=== PATIENT | male | born 1965 | race Caucasian/White ===

== ENCOUNTER 2017-01-09 07:25 | Day surgery (SDC) | payer OTHER ==
[2017-01-09] MEDS ORDERED: ceFAZolin 2 GM/DEXTROSE 100 ML IV ONE (07:37)
[2017-01-09] MEDS ORDERED: PAPAVERINE HCL 60 MG/2 ML SDV ONE (07:39)
[2017-01-09] MEDS ORDERED: BUPIVACAINE 0.5% 30 ML SDV ONE (07:40)
[2017-01-09] MEDS ORDERED: PROTAMINE SULFATE 50 MG/5 ML VIAL IVP ONE (07:40)
[2017-01-09] MEDS ORDERED: THROMBIN (BOVINE) 20,000 UNIT SPRAY TP ONE (07:40)
[2017-01-09] MEDS ORDERED: THROMBIN (BOVINE) 5,000 UNIT VIAL TP ONE (07:40)
[2017-01-09] MEDS ORDERED: NS 1,000 ML IV ONE (07:47)
[2017-01-09] MEDS ORDERED: LIDOCAINE 1% 2 ML INJ ID PRN (07:47)
[2017-01-09 08:24] LABS: % IMMATURE GRANULYOCYTES 0.4 % (0.0-1.1); ABSOLUTE IMMATURE GRANULOCYTES 0.02 10^3/uL (0.00-0.10); ADD DIFF? NO; ADD MORPH? NO; ADD SCAN? NO; ATYPICAL LYMPHOCYTE FLAG 0 (0-99); FRAGMENT RBC FLAG 0 (0-99); HEMATOCRIT 39.2 % (40.0-51.0); HEMOGLOBIN 13.6 g/dL (13.7-17.5); LEFT SHIFT FLG 0 (0-99); LIPEMIA HEMOLYSIS FLAG 90 (0-99); MEAN CELL HEMOGLOBIN CONCENTR. 34.7 g/dL (32.4-36.7); MEAN CELL VOLUME 92.2 fL (81.5-99.8); PLATELET CLUMPS FLAG 0 (0-99); PLATELET COUNT 312 10^3/uL (150-400); RED BLOOD CELL COUNT 4.25 10^6/uL (4.40-6.38); RED CELL DISTRIBUTION WIDTH 13.1 % (11.5-15.2)
[2017-01-09] MEDS ORDERED: MIDAZOLAM 2 MG/2 ML VIAL IVP ONE (09:29)
[2017-01-09 09:44] LABS: ANION GAP 12 mEq/L (8-16); CALCIUM 9.2 mg/dL (8.5-10.4); CARBON DIOXIDE 19 mEq/l (22-31); CHLORIDE 98 mEq/L (97-110); CREATININE 6.2 mg/dL (0.7-1.3); GLOMERULAR FILTRATION RATE 10; GLUCOSE 225 mg/dL (70-100); POTASSIUM 4.8 mEq/L (3.5-5.2); SODIUM 129 mEq/L (134-144)
--- NOTE | 2017-01-09 10:10 | PDHPUP ---
History & Physical Update H&P update statement: This history and physical update is based on an assessment of the patient which was completed after admission or registration (within 24 hours), but prior to the surgery/procedure. H&P update: H&P reviewed & patient examined, no change in patient's condition since H&P completed
[2017-01-09] MEDS ORDERED: fentaNYL 100 MCG/2 ML INJ ONE ×2 (10:17)
[2017-01-09] MEDS ORDERED: CISATRACURIUM BESYLATE 20 MG/10 ML VIAL IV ONE (10:17)
[2017-01-09] MEDS ORDERED: PROPOFOL/EMULSION 500 MG/50 ML BOTTLE IV ONE (10:17)
[2017-01-09] MEDS ORDERED: DEXAMETHASONE 4 MG/ML VIAL ONE (10:17)
[2017-01-09] MEDS ORDERED: PHENYLEPHRINE HCL 100 MCG/ML SYR ONE (10:18)
[2017-01-09] MEDS ORDERED: LIDOCAINE 2% 5 ML SDV ONE (10:18)
[2017-01-09] MEDS ORDERED: GLYCOPYRROLATE 0.2 MG/1 ML VIAL ONE ×3 (10:18→11:28)
--- NOTE | 2017-01-09 11:03 | PDANEPAE ---
ANE History of Present Illness A V shunt Dialysis CRI Cr 6.2 ANE Past Medical History - Cardiovascular History Hx Hypertension: Yes Hx Arrhythmias: No Hx Chest Pain: No Hx Coronary Artery / Peripheral Vascular Disease: No Hx CHF / Valvular Disease: No Hx Palpitations: No Cardiovascular History Comment: HYPERLIPIDEMIA - Pulmonary History Hx COPD: No Hx Asthma/Reactive Airway Disease: No Hx Recent Upper Respiratory Infection: No Hx Oxygen in Use at Home: No Hx Sleep Apnea: Yes Sleep Apnea Screening Result - Last Documented: Positive - Neurologic History Hx Cerebrovascular Accident: No Hx Seizures: No Hx Dementia: No - Endocrine History Hx Diabetes: Yes Hypothyroid: No Hyperthyroid: No Obesity: no, moderate Endocrine History Comment: DM - Renal History Hx Renal Disorders: Yes Renal History Comment: CHRONIC KIDNEY DISEASE - STAGE 4 - Liver History Hx Hepatic Disorders: No - Neurological & Psychiatric Hx Hx Neurological and Psychiatric Disorders: No - Cancer History Hx Cancer: No - Congenital Disorder History Hx Congenital Disorders: No - GI History Hx Gastrointestinal Disorders: Yes Gastrointestinal History Comment: GERD - Other Health History Other Health History: NEG - Chronic Pain History Chronic Pain: No - Surgical History Prior Surgeries: APPENDECTOMY. SHOULDER TEJINDER SCOPES. TOE SURG. FX REPAIR. MULT EYE SURG ANE Review of Systems - Exercise capacity METS (RN): 4 METS - Systems Cardiac: Reports: edema Respiratory: Reports: no symptoms ANE Patient History - Allergies Allergies/Adverse Reactions: No Known Allergies Allergy (Verified 01/09/17 07:53) - Home Medications Home medications: home medication list seen and reviewed Home Medications: Insulin Glargine [Lantus Syringe] 100 units SC 10/06/12 [Last Taken 01/07/17 22: 00] Insulin Lispro [Humalog] 8 units SC 10/06/12 [Last Taken 01/08/17 20:00] Lisinopril [Zestril 2.5 mg (RX)] 2.5 mg PO DAILY 10/06/12 [Last Taken 01/08/17 04:30] Omeprazole [Prilosec 10 mg] 10/06/12 [Last Taken 01/08/17 22:00] Simvastatin [Zocor 5 mg] 5 mg PO 10/06/12 [Last Taken 01/07/17] Allopurinol 01/08/17 [Last Taken 01/08/17 04:30] Aspirin 01/08/17 [Last Taken 01/08/17 04:30] Calcitriol 01/08/17 [Last Taken 01/06/17] Labetalol HCl 01/08/17 [Last Taken 01/08/17 20:00] Metolazone 01/08/17 [Last Taken 01/08/17 04:30] - NPO status NPO Since - Liquids (Date): 01/08/17 NPO Since - Liquids (Time): 23:45 NPO Since - Solids (Date): 01/08/17 NPO Since - Solids (Time): 20:00 - Anes Hx Anes Hx: no prior problems - Smoking Hx Smoking Status: Never smoked - Alcohol Use Alcohol Use: Rarely - Family Anes Hx Family Anes Hx: none Family Hx Anesthesia Complications: NEG ANE Labs/Vital Signs - Labs Result Diagrams: 01/09/17 08:05 01/09/17 08:52 - Labs - BMP Sodium: Corrected for increased Glucose 130 - Vital Signs Blood Pressure: 126/80 Heart Rate: 84 Respiratory Rate: 16 O2 Sat (%): 95 Height: 180.34 cm Weight: 113.398 kg ANE Physical Exam - Airway Neck exam: FROM Mallampati Score: Class 2 Mouth exam: normal dental/mouth exam - Pulmonary Pulmonary: no respiratory distress, no rales or rhonchi - Cardiovascular Cardiovascular: regular rate and rhythym, no murmur, rub, or gallop - ASA Status ASA Status: III ANE Anesthesia Plan Anesthesia Plan: general endotracheal anesthesia (Normal saline IV fluids) Specialized Airway: video laryngoscope
[2017-01-09] MEDS ORDERED: NEOSTIGMINE METHYLSULFATE 5 MG/5 ML SYR ONE (11:28)
[2017-01-09] MEDS ORDERED: PROPOFOL 200 MG/20 ML VIAL ONE (11:30)
[2017-01-09] MEDS ORDERED: ONDANSETRON 4 MG/2 ML VIAL IVP PRN (11:34)
[2017-01-09] MEDS ORDERED: NALOXONE HCL 0.4 MG/ML INJ IVP PRN (11:34)
[2017-01-09] MEDS ORDERED: HYDROmorphONE/DILAUDID 1 MG/ML SYR IVP PRN (11:34)
[2017-01-09] MEDS ORDERED: HYDROCODONE/APAP 5/325 TAB PO PRN (11:34)
[2017-01-09] MEDS ORDERED: fentaNYL 100 MCG/2 ML INJ IVP PRN ×2 (11:34)
[2017-01-09] MEDS ORDERED: ONDANSETRON 4 MG/2 ML VIAL ONE (11:52)
--- NOTE | 2017-01-09 12:05 | POSTOPPROG ---
Post Op Note Date of Operation: 01/09/17 Surgeon: Maximiliano Guzman Attendant Arcade: Suyapa Sanchez Anesthesiologist: Rafael Anesthesia: GET(General Endotracheal) Pre-op Diagnosis: Renal failure Post-op Diagnosis: Same Indication: renal failure in need of dialysis, Cr 6 Procedure: Left brachial cephalic AV fistula Inf/Abcess present in the surg proc area at time of surgery?: No Depth: Deep Incisional (Fascial) EBL: Minimal Complications: None Specimen(s): None
[2017-01-09 12:23] VITALS: PULSE 89
[2017-01-09 12:48] VITALS: RESP 16; O2SAT 96
--- NOTE | 2017-01-09 13:11 | POSTANESTH ---
Post Anesthetic Evaluation Cardiovascular Status: Normal, Stable Respiratory Status: Normal, Stable Level of Consciousness/Mental Status: Can Participate in Eval Pain Control: Adequate, Prn Tx Ordered Nausea/Vomiting Control: Adequate, Prn Tx Ordered Complications Possibly Related to Anesthesia: None Noted
[2017-01-09 16:07] VITALS: BP 128/75
[2017-01-09 16:25] VITALS: TEMP 97.7
== END 2017-01-09 14:25 | disposition home or self-care (01) ==
LOC: FSGY 07:25
PROVIDERS: ATTEND Surgery
DX: E11.22 Type 2 diabetes mellitus with diabetic chronic kidney disease (principal); N18.9 Chronic kidney disease, unspecified
CPT/HCPCS: J0690; J1100; J1644; J2250; J2370; J2405; J2440; J2704; J2710; J2720; J3010

== ENCOUNTER → 2017-04-03 | Outpatient (CLI) | payer OTHER ==
[~2017-04-03] MED LIST: REGADENOSON 0.4 MG/5 ML SYR IVP ONE
--- NOTE | 2017-04-04 10:33 | CPR ---
[f rep st] NONINVASIVE CARDIAC PROCEDURE REPORT PROCEDURE: Injection of Lexiscan myocardial perfusion imaging study. INDICATION: Patient with renal failure and diabetes; pre-evaluation for renal transplant. PRE: After assuring patient's n.p.o. status of caffeine for greater than 12 hours, patient was place d on electrocardiogram. Initial EKG shows sinus rhythm, normal axis, nonspecific T-wave abnormalitie s in inferior leads. Patient denies any chest pain, shortness of breath, or symptoms suggesting of i schemia. Initial blood pressure 176/60, saturating 95% on room air. INJECTION: Patient was given Lexiscan 0.4 mg slow IV push followed by nuclear isotope. Patient did report within 1 minute of injection some lightheadedness and flushing sensation; denying any chest pa in or pressure. Electrocardiogram remained unchanged throughout recovery, and patient was given caff einated beverage. Within 5 minutes symptoms had all subsided. Final blood pressure of 150/58, heart rate 87 beats per minute, saturation 99% on room air. IMPRESSION: A 51-year-old male with diabetes, hypertension, and renal failure, being evaluated for p ossible renal transplant and preoperative workup. Denies any chest pain or symptoms suggesting of is chemia. No significant EKG changes with the Lexiscan. Patient did report mild flushing and lighthea dedness post injection scan but relieved with caffeinated beverage. Vital signs were stable. POST: Patient is in Nuclear Medicine getting stress MPI imaging done at this time. /[id number]/MODL
== END ==
LOC: FIMAGING 13:19
PROVIDERS: ATTEND Internal Medicine Nephrology
DX: Z01.818 Encounter for other preprocedural examination (principal); N18.4 Chronic kidney disease, stage 4 (severe); E11.22 Type 2 diabetes mellitus with diabetic chronic kidney disease; I27.20 Pulmonary hypertension, unspecified; R94.39 Abnormal result of other cardiovascular function study
CPT/HCPCS: 71020; 78452; A9500; J2785